=== PATIENT | female | born 1965 ===

== ENCOUNTER 2019-08-10 22:38 | Emergency (ER) ==
--- NOTE | 2019-08-10 23:47 | ER ---
Nurse's Notes [facility] Name: Pretty Joyce Age: 53 yrs Sex: Female : 1965 Arrival Date: 08/10/2019 Time: 22:40 Bed 16 Private MD: Diagnosis: Insomnia Presentation: 08/10 22:48 Presenting complaint: EMS states: pt was vising common law at [facility]. ca1 While she was there, she said she wanted to kill herself. There was an Adaptive Physical Education Specialist at the scene who called us to pick her up. When we first got there, she confirmed of wanting to hurt herself. Then at the truck, said she does not want to hurt herself anymore. She said sorry and said "I want to go back to my who will take care of me". At the truck, she was acting creepy, she held my hand and said, "Daddy don't make me go. Will you do all the talking?". Transition of care:. Onset of symptoms was August 10, 2019. Risk Assessment: Do you want to hurt yourself or someone else? Other: currently denies wanting to harm self. Said, she did not mean what she said at [facility]. Initial Sepsis Screen: Does the patient meet any 2 criteria? No. Patient's initial sepsis screen is negative. Does the patient have a suspected source of infection? No. Patient's initial sepsis screen is negative. Care prior to arrival: None. 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 - Social history:: Smoking status: Patient uses tobacco products, smokes one pack cigarettes per day. - Ebola Screening: : Patient negative for fever greater than or equal to 101.5 degrees Fahrenheit, and additional compatible Ebola Virus Disease symptoms Patient denies exposure to infectious person Patient denies travel to an Ebola-affected area in the 21 days before illness onset No symptoms or risks identified at this time. Screenin:02 Abuse screen: Denies threats or abuse. Denies injuries from another. Nutritional ca1 screening: No deficits noted. Tuberculosis screening: No symptoms or risk factors identified. Fall Risk None identified. Assessment: 23:12 General: Appears in no apparent distress. comfortable, Behavior is calm, cooperative. ca1 23:13 Pain: Complains of pain in skin all over the body Pain currently is 10 out of 10 on a ca1 pain scale. Neuro: Level of Consciousness is awake, alert, obeys commands, Oriented to person. Cardiovascular: Heart tones S1 S2 present Capillary refill < 3 seconds. Respiratory: Airway is patent Respiratory effort is even, unlabored, Respiratory pattern is regular, symmetrical, Breath sounds are clear bilaterally. GI: Abdomen is round non-distended, Bowel sounds present X 4 quads. Abd is soft and non tender X 4 quads. : No deficits noted. No signs and/or symptoms were reported regarding the genitourinary system. EENT: No deficits noted. No signs and/or symptoms were reported regarding the EENT system. Derm: Skin is intact, is healthy with good turgor, Skin is pink, warm \\T\\ dry. Musculoskeletal: Circulation, motion, and sensation intact. Capillary refill < 3 seconds, Range of motion: intact in all extremities. 08/11 00:00 Reassessment: Patient appears in no apparent distress at this time. Patient and/or cc3 family updated on plan of care and expected duration. Pain level reassessed. Patient is alert, oriented x 3, equal unlabored respirations, skin warm/dry/pink. ROBERT Wakefield discharged the patient home, no prescription given. No IV cannula in situ. Patient left ER vitally stable and ambulatory. No valuables left in the patient's room. Patient denies pain at this time. Psych: 08/10 23:06 Subjective: Patient's mood is sad, Delusions are denied, Hallucinations are denied ca1 Having thoughts of suicide. Denies suicidal plan. Objective: Patient is cooperative, Speech is normal, Affect is appropriate. Interventions: Removed personal items and placed in bag. Patient placed in hospital gown. Searched person for dangerous items. Suicide Risk Assessment: Sad Person Scale: Sex of patient: Female: Score 0 points. Age of patient: Score 0 point if patient falls outside of specified age parameters. Depression: Score 0 point if signs of depression are not present. Previous Attempt: Score 1 point if patient has previously attempted suicide. Substance Abuse: Score 1 point if patient abuses alcohol or drugs. Rational Thinking: Score 1 point if patient is lacking rational thinking. Social Support: Score 1 point if social support is lacking and/or unavailable. Organized Plan: Score 0 if patient did not have an organized plan in place. Relationship: Score 0 point if patient has a spouse or domestic partner. Safety Checks: Personal items have been removed. Pt has been placed in a hallway bed/chair. No visitors are present at this time. Patient uses benzodiazepines 3-4/day. "I crush them and snort them" Patient uses tobacco 1 pack. 08/11 00:00 Commitment: Patient will be a voluntary commitment. cc3 Vital Signs: 08/10 23:02 BP 106 / 67; Pulse 87; Resp 16 S; Pulse Ox 99% on R/A; Weight 90.72 kg (M); Height 5 ca1 ft. 4 in. (162.56 cm) (R); Pain 10/10; 08/11 00:04 BP 109 / 63; Pulse 85; Resp 15 S; Pulse Ox 98% on R/A; Pain 0/10; cc3 08/10 23:02 Body Mass Index 34.33 (90.72 kg, 162.56 cm) ca1 ED Course: 08/10 22:40 Patient arrived in ED. bb 22:48 Claire Moran, ELEN is Primary Nurse. ca1 22:53 Patel Wakefield PA is PHCP. jr8 22:53 Ronni Goldstein MD is Attending Physician. jr8 22:57 Triage completed. ca1 23:00 Arm band placed on. ca1 23:00 Safety checks: Items removed: yes. Door open/sign placed on door: yes. Family/friend em1 present: no. Sitter present: Yes. 23:02 Patient has correct armband on for positive identification. Bed in low position. Call ca1 light in reach. Side rails up X 1. Valuables. Sitter at bedside. Patient is placed in psych hold. Patient is placed in psych hold. Patient is placed in psych hold. 23:04 Safety Checks: Personal items have been removed. The door is open or patient has been ca1 placed in a hallway bed/chair. Sitter present at this time. 23:15 Safety checks: Items removed: yes. Door open/sign placed on door: yes. Family/friend em1 present: no. Sitter present: Yes. 23:30 Safety checks: Items removed: yes. Door open/sign placed on door: yes. Family/friend em1 present: no. Sitter present: Yes. 08/11 00:00 No provider procedures requiring assistance completed. Patient did not have IV access cc3 during this emergency room visit. Administered Medications: 08/10 23:50 Drug: Ibuprofen 800 mg Route: PO; cc3 08/11 00:00 Follow up: Response: No adverse reaction cc3 08/10 23:50 Drug: Benadryl 25 mg Route: PO; cc3 08/11 00:00 Follow up: Response: No adverse reaction cc3 Outcome: 08/10 23:46 Discharge ordered by MD. rinaldi 08/11 00:00 Discharged to home ambulatory. cc3 Condition: stable Discharge instructions given to patient, Instructed on discharge instructions, follow up and referral plans. Demonstrated understanding of instructions, follow-up care. 00:04 Patient left the ED. cc3 Signatures: Leigh Butler RN RN Dayday Baldwin Josh, PA PA jr8 Cordel, Charlene cc3 Claire Moran RN RN ca1 Corrections: (The following items were deleted from the chart) 08/10 23:14 23:12 General: Appears ca1 ca1
--- NOTE | 2019-08-10 23:47 | EDPHYS ---
Physician Documentation [facility] Name: Pretty Joyce Age: 53 yrs Sex: Female : 1965 Arrival Date: 08/10/2019 Time: 22:40 Bed 16 Private MD: ED Physician Ronni Goldstein HPI: 08/10 23:41 This 53 yrs old Female presents to ER via EMS with complaints of Unable to sleep. jr8 23:41 The patient presents to the emergency department with anxiety, depression. Onset: The jr8 symptoms/episode began/occurred today. Past psychiatric history: Prior diagnosis: bipolar disorder, depression. Associated signs and symptoms: Pertinent positives; insomnia. Severity of symptoms: At their worst the symptoms were mild in the emergency department the symptoms are unchanged. The patient has not recently seen a physician. Pt was at [facility] with , states she told staff to call 911 because she could not sleep. Pt denies SI, states she does not want to kill herself. Pt states "just dope me up, I need pain meds and sleep meds, vicodin, soma, and something else". Pt states she has not been able to see her pain management and psych doctors but could not give an accurate time frame. . 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 - Social history:: Smoking status: Patient uses tobacco products, smokes one pack cigarettes per day. - Ebola Screening: : Patient negative for fever greater than or equal to 101.5 degrees Fahrenheit, and additional compatible Ebola Virus Disease symptoms Patient denies exposure to infectious person Patient denies travel to an Ebola-affected area in the 21 days before illness onset No symptoms or risks identified at this time. ROS: 23:41 Constitutional: Negative for fever, chills, and weight loss, Eyes: Negative for injury, jr8 pain, redness, and discharge, ENT: Negative for injury, pain, and discharge, Neck: Negative for injury, pain, and swelling, Cardiovascular: Negative for chest pain, palpitations, and edema, Respiratory: Negative for shortness of breath, cough, wheezing, and pleuritic chest pain, Abdomen/GI: Negative for abdominal pain, nausea, vomiting, diarrhea, and constipation, MS/Extremity: Negative for injury and deformity, Skin: Negative for injury, rash, and discoloration, Neuro: Negative for headache, weakness, numbness, tingling, and seizure. 23:41 Psych: Positive for anxiety, insomnia, Negative for auditory hallucinations, visual hallucinations, homicidal ideation, suicide gesture, suicidal ideation, acute changes. Exam: 23:41 Constitutional: This is a well developed, well nourished patient who is awake, alert, jr8 and in no acute distress. Head/Face: Normocephalic, atraumatic. Eyes: Pupils equal round and reactive to light, extra-ocular motions intact. Lids and lashes normal. Conjunctiva and sclera are non-icteric and not injected. Cornea within normal limits. Periorbital areas with no swelling, redness, or edema. ENT: Nares patent. No nasal discharge, no septal abnormalities noted. Tympanic membranes are normal and external auditory canals are clear. Oropharynx with no redness, swelling, or masses, exudates, or evidence of obstruction, uvula midline. Mucous membranes moist. Neck: Trachea midline, no thyromegaly or masses palpated, and no cervical lymphadenopathy. Supple, full range of motion without nuchal rigidity, or vertebral point tenderness. No Meningismus. Chest/axilla: Normal chest wall appearance and motion. Nontender with no deformity. No lesions are appreciated. Cardiovascular: Regular rate and rhythm with a normal S1 and S2. No gallops, murmurs, or rubs. Normal PMI, no JVD. No pulse deficits. Respiratory: Lungs have equal breath sounds bilaterally, clear to auscultation and percussion. No rales, rhonchi or wheezes noted. No increased work of breathing, no retractions or nasal flaring. Abdomen/GI: Soft, non-tender, with normal bowel sounds. No distension or tympany. No guarding or rebound. No evidence of tenderness throughout. Back: No spinal tenderness. No costovertebral tenderness. Full range of motion. Neuro: Awake and alert, GCS 15, oriented to person, place, time, and situation. Cranial nerves II-XII grossly intact. Motor strength 5/5 in all extremities. Sensory grossly intact. Cerebellar exam normal. Normal gait. Vital Signs: 23:02 BP 106 / 67; Pulse 87; Resp 16 S; Pulse Ox 99% on R/A; Weight 90.72 kg (M); Height 5 ca1 ft. 4 in. (162.56 cm) (R); Pain 10/10; 08/11 00:04 BP 109 / 63; Pulse 85; Resp 15 S; Pulse Ox 98% on R/A; Pain 0/10; cc3 08/10 23:02 Body Mass Index 34.33 (90.72 kg, 162.56 cm) ca1 MDM: 08/10 22:53 Patient medically screened. Sera 23:45 Data reviewed: vital signs, nurses notes, EMS record, and as a result, I will discharge jr8 patient. Data interpreted: Pulse oximetry: on room air is 99 %. Interpretation: normal. 08/10 23:18 Order name: Urine Dipstick--Ancillary (enter results) [facility] 08/10 23:58 Order name: Urine Dipstick-Ancillary; Complete Time: 00:32 EDMS Administered Medications: 23:50 Drug: Ibuprofen 800 mg Route: PO; 3 08/11 00:00 Follow up: Response: No adverse reaction [facility] 08/10 23:50 Drug: Benadryl 25 mg Route: PO; 3 08/11 00:00 Follow up: Response: No adverse reaction [facility] Disposition: 00:24 Co-signature as Attending Physician, Ronni Goldstein MD. rn Disposition: 08/10/19 23:46 Discharged to Home. Impression: Insomnia. - Condition is Stable. - Discharge Instructions: Insomnia. - Medication Reconciliation Form, Thank You Letter, Antibiotic Education, Prescription Opioid Use form. - Follow up: Private Physician; When: 2 - 3 days; Reason: Recheck today's complaints, Continuance of care, Re-evaluation by your physician. Follow up: Emergency Department; When: As needed. - Problem is chronic. - Symptoms are unchanged. Signatures: Dispatcher [employer] EDMS Ronni Goldstein MD MD rn Roszak, Josh, PA PA 8 Aleta Garcia 3 Acob, Claire, RN RN ca1 Corrections: (The following items were deleted from the chart) 00:04 08/10 23:46 08/10/2019 23:46 Discharged to Home. Impression: Insomnia. Condition is cc3 Stable. Forms are Medication Reconciliation Form, Thank You Letter, Antibiotic Education, Prescription Opioid Use. Follow up: Private Physician; When: 2 - 3 days; Reason: Recheck today's complaints, Continuance of care, Re-evaluation by your physician. Follow up: Emergency Department; When: As needed. Problem is chronic. Symptoms are unchanged. jr8
[2019-08-10 23:55] LABS: Urine Blood NEGATIVE (NEG); Urine Glucose NEGATIVE (NEG); Urine Protein TRACE (NEG)
[2019-08-10] MEDS ORDERED: DIPHENHYDRAMINE 25 MG TAB/CAP ONE (23:56)
[2019-08-10] MEDS ORDERED: IBUPROFEN 400 MG TAB ONE (23:56)
== END 2019-08-11 00:04 | disposition home or self-care (01) ==
LOC: ER 22:38 → EDBD 22:38 → ER 08-11 00:04
DX: G47.00 Insomnia, unspecified (principal); F31.9 Bipolar disorder, unspecified; F17.210 Nicotine dependence, cigarettes, uncomplicated
CPT/HCPCS: 81003; 99284